=== PATIENT | male | born 1970 | race Caucasian/White ===

== ENCOUNTER 2019-04-22 03:08 | Outpatient (CLI) | payer MEDICAID, SELFPAY ==
[2019-04-22 11:16] LABS: Abs Immature Grans 0.02 k/cumm (0.0-0.09); Absolute Basophil Count 0.03 k/cumm (0.0-0.2); Absolute Eosinophil Count 0.08 k/cumm (0.0-0.7); Absolute Monocyte Count 0.49 k/cumm (0.11-0.7); Absolute Neutrophil Count 4.67 k/cumm (1.2-6.7); Basophils % 0.4; Eosinophils % 1.2; HCT 46.2 % (40.0-50.0); HGB 15.5 g/dL (13.5-17.5); Immature Grans % 0.3; Lymphocytes % 23.2; Mean Corp. HGB Concentration 33.5 g/dL (32.0-36.0); Mean Corpuscular Hemoglobin 32.1 pg (27.0-33.0); Mean Corpuscular Volume 95.7 fL (80-95); Mean Platelet Volume 11.1 fL (8.0-11.0); Monocytes % 7.1; Neutrophils % 67.8; Platelet Count 236 x1000/uL (130-400); RBC 4.83 m/cumm (4.50-6.00); RBC Distribution Width 13.4 % (11.8-14.1); White Blood Cell Count 6.89 k/cumm (4.4-10.8)
[2019-04-22 11:36] LABS: ALT 56 U/L (12-78); AST 28 U/L (15-37); Albumin 3.6 g/dL (3.4-5.0); Alkaline Phosphatase 83 U/L (46-116); Anion Gap 7.7 mmol/L (3-11); BUN 16 mg/dL (7-18); Bilirubin, Total 0.3 mg/dL (0.2-1.0); C-Reactive Protein 1.08 mg/dL (0.0-0.3); CO2 27.3 mmol/L (21.0-32.0); CREATININE 0.98 mg/dL (0.70-1.30); Calcium 8.7 mg/dL (8.5-10.1); Chloride 105 mmol/L (98-107); Creatine Kinase 197 U/L (39-308); Glucose 112 mg/dL (70-100); Potassium 4.5 mmol/L (3.5-5.1); Sodium 140 mmol/L (136-145); TSH (W/Ref FT4) 0.97 uIU/mL (0.358-3.74); Total Protein 6.8 g/dL (6.4-8.2)
[2019-04-25 11:08] LABS: Lyme Ab w Rflx to Lyme Confirm Negative
== END 2019-04-22 03:28 ==
PROVIDERS: PCP Family Medicine; Visit Provider Family Medicine
DX: M79.10 Myalgia, unspecified site (principal); M25.50 Pain in unspecified joint
CPT/HCPCS: 36415; 80053; 82550; 84443; 85025; 86140; 86618

== ENCOUNTER 2019-05-06 02:23 | Outpatient (CLI) | payer MEDICAID, SELFPAY ==
[2019-05-06 11:23] LABS: Hemoglobin A1C 5.6 % (4.5-6.2)
[2019-05-06 11:47] LABS: Glucose 102 mg/dL (70-100)
[2019-05-06 12:07] LABS: ESR 6 MM/HR (0-15)
[2019-05-06 12:11] LABS: Bilirubin Negative (Negative); Blood Negative (Negative); Clarity Clear; Glucose Negative (Negative); Ketones Negative (Negative); Leukocyte Esterase Negative (Negative); Nitrite Negative (Negative); Specific Gravity 1.025 (1.005-1.025); Urobilinogen 0.2 EU/dL (Up TO 0.2); pH 5.5 (5-8)
[2019-05-06 12:21] LABS: Vitamin D 25 Total 17.6 ng/ml (30-100)
[2019-05-09 10:17] LABS: Rheumatoid Factor 11 IU/mL (<12.5)
[2019-05-09 13:59] LABS: ANA Interpretation Negative (NEGAT)
== END 2019-05-06 02:43 ==
PROVIDERS: PCP Family Medicine; Visit Provider Family Medicine
DX: M79.10 Myalgia, unspecified site (principal); R73.09 Other abnormal glucose; R39.11 Hesitancy of micturition; E55.9 Vitamin D deficiency, unspecified
CPT/HCPCS: 36415; 82306; 82947; 85652; 81003; 83036; 86038; 86431